=== PATIENT | female | born 1945 | race Caucasian/White ===

== ENCOUNTER → 2019-04-08 | Outpatient (CLI) | payer MEDICARE | END | disposition home or self-care (01) | LOC: RAH 15:30 | PROVIDERS: ATTEND Family Medicine | DX: S43.401A Unspecified sprain of right shoulder joint, initial encounter (principal); M19.011 Primary osteoarthritis, right shoulder; X58.XXXA Exposure to other specified factors, initial encounter; Y93.89 Activity, other specified; Y92.89 Other specified places as the place of occurrence of the external cause; Y99.8 Other external cause status | CPT/HCPCS: 73221 ==

== ENCOUNTER 2019-04-27 06:48 | Day surgery (SDC) | payer MEDICARE ==
[~2019-04-27 06:48] MED LIST: ASPI-555 PO; FISH1CAP50 PO; GLUC-148 PO; HYDR-4453 PO; LEVO100V8 IV; METO-408 PO; MULT-1258 PO; NITR0.4T50 SL; PHYT100T PO; SENN-107 PO; SIMV-46 PO; TURM1TAB PO; [UNRECOGNIZED DRUG - OTHER] PO; coq10 PO
[2019-04-27] MEDS ORDERED: SODIUM CHLORIDE 0.9% 1000ML 1,000 ML IV ONE (06:51)
[2019-04-27 07:45] VITALS: BP 104/42
[2019-04-27] MEDS ORDERED: PROPOFOL 10 MG/ML 20ML VIAL IV ONE ×2 (11:15)
[2019-04-27 11:29] VITALS: BP 77/60
[2019-04-27 11:34] VITALS: BP 79/61
[2019-04-27 11:39] VITALS: BP 98/46
[2019-04-27 11:44] VITALS: BP 148/62
== END 2019-04-27 11:40 | disposition home or self-care (01) ==
LOC: EDBD → EDSEX → DAH 06:48 → ENDO 06:48 → EDUNIT# 08:00 → ENDO 11:40
PROVIDERS: ATTEND Surgery
DX: K21.9 Gastro-esophageal reflux disease without esophagitis (principal); K29.70 Gastritis, unspecified, without bleeding; K44.9 Diaphragmatic hernia without obstruction or gangrene; I10 Essential (primary) hypertension; I25.10 Atherosclerotic heart disease of native coronary artery without angina pectoris; E11.9 Type 2 diabetes mellitus without complications; E03.9 Hypothyroidism, unspecified; E66.01 Morbid (severe) obesity due to excess calories; E78.00 Pure hypercholesterolemia, unspecified; Z68.37 Body mass index [BMI] 37.0-37.9, adult; Z98.84 Bariatric surgery status; Z95.1 Presence of aortocoronary bypass graft; Z98.42 Cataract extraction status, left eye; Z98.41 Cataract extraction status, right eye; Z95.818 Presence of other cardiac implants and grafts; Z88.3 Allergy status to other anti-infective agents; Z87.891 Personal history of nicotine dependence; G47.30 Sleep apnea, unspecified; Z95.5 Presence of coronary angioplasty implant and graft; Z98.890 Other specified postprocedural states
CPT/HCPCS: 43239; A4215; A4221; A4222; A4223; A4606; A4620; A4663; J2704 ×2; J7030